=== PATIENT | male | born 1955 | race Caucasian/White ===

== ENCOUNTER 2021-08-23 14:30 | Emergency (ER) | payer MEDICARE, MEDICAID ==
[~2021-08-23] VITALS: Ht 180.3 cm; Wt 77.2 kg
[2021-08-23] MEDS ORDERED: MAALOX/LIDOCAINE/NYSTATIN SUSP 5 ML ORAL.SYG MM ONE (17:00)
[2021-08-23 18:14] VITALS: BP 107/72
== END 2021-08-23 18:20 | disposition home or self-care (01) ==
LOC: EMS 14:30
DX: K12.0 Recurrent oral aphthae (principal)
CPT/HCPCS: 99282; Z7502; Z7610

== ENCOUNTER 2023-06-28 20:58 | Emergency (ER) | payer MEDICARE, OTHER ==
[~2023-06-28] VITALS: Ht 182.9 cm; Wt 82.0 kg
[2023-06-28 21:19] VITALS: TEMP 98.2
[2023-06-28] MEDS ORDERED: IBUPROFEN 600 MG TABLET PO ONE (23:00)
[2023-06-29 00:30] VITALS: BP 132/77; PULSE 80; RESP 18
== END 2023-06-29 00:45 | disposition home or self-care (01) ==
LOC: EMS 20:59
DX: S80.01XA Contusion of right knee, initial encounter (principal); W01.0XXA Fall on same level from slipping, tripping and stumbling without subsequent striking against object, initial encounter; Y93.89 Activity, other specified; Y92.89 Other specified places as the place of occurrence of the external cause; Y99.8 Other external cause status
CPT/HCPCS: 99283